=== PATIENT | male | born 1980 | race American Indian/Alaskan Native ===

== ENCOUNTER 2017-12-04 19:56 | Emergency (ER) | payer SELFPAY ==
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
[2017-12-04] MEDS ORDERED: TYLENOL PO ONE (20:57)
[2017-12-04 21:03] LABS: Basophils % (Auto) 0.5 % (0.0-1.8); Eosinophils # (Auto) 0.1 K/mm3 (0.0-0.4); Eosinophils % (Auto) 1.7 % (0.0-4.3); Hematocrit 45.7 % (35.5-45.6); Hemoglobin 15.4 gm/dl (11.8-15.2); Lymphocytes % (Auto) 44.6 % (13.4-35.0); Mean Corpuscular HGB Conc 34 % (32-34); Mean Corpuscular Hemoglobin 31 pg (28-32); Mean Corpuscular Volume 91 fl (84-94); Monocytes # (Auto) 0.6 K/mm3 (0.0-0.8); Monocytes % (Auto) 13.8 % (0.0-7.3); Platelet Count 167 K/mm3 (140-440); Red Blood Count 5.01 M/mm3 (3.65-5.03); Red Cell Distribution Width 15.2 % (13.2-15.2)
[2017-12-04 21:17] LABS: BUN/Creatinine Ratio 9; Blood Urea Nitrogen 12 mg/dL (9-20); Calcium 9.3 mg/dL (8.4-10.2); Hemolysis Index 16
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
[2017-12-05 00:45] LABS: Benzodiazepines Screen,Urine PRESUMPTIVE NEGATIVE; Methadone Screen,Urine PRESUMPTIVE NEGATIVE; Opiate Screen,Urine PRESUMPTIVE NEGATIVE
[2017-12-05 00:46] LABS: Bilirubin,Urine NEG (Negative); Blood,Urine NEG (Negative); Color,Urine Yellow (Yellow); Mucus,Urine 2+ /HPF
[2017-12-05 00:58] LABS: Amphetamine Screen,Urine PRESUMPTIVE POSITIVE; Cannabinoid Screen,Urine PRESUMPTIVE POSITIVE; Cocaine Screen,Urine PRESUMPTIVE POSITIVE
[2017-12-05] MEDS ORDERED: TYLENOL PO ONE (08:39)
[2017-12-05] MEDS ORDERED: TYLENOL ONE (20:41)
[2017-12-05] MEDS: TYLENOL PO SCH (21:00)
[2017-12-06] MEDS: TYLENOL PO SCH (03:07)
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
[2017-12-06] MEDS: TYLENOL PO PRN ×2 (17:42→18:00)
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
[2017-12-07] MEDS: TYLENOL PO PRN (17:32)
[2017-12-08] MEDS: TYLENOL PO PRN (09:46)
[2017-12-08 11:15] VITALS: BP 125/74
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
== END 2017-12-08 14:56 | disposition home or self-care (01) ==
LOC: EEVIPCON 19:56 → ED 19:56
DX: F39 Unspecified mood [affective] disorder (principal); F12.10 Cannabis abuse, uncomplicated; F14.10 Cocaine abuse, uncomplicated; F17.200 Nicotine dependence, unspecified, uncomplicated; G89.29 Other chronic pain
CPT/HCPCS: 36415; 70450; 80048; 80307; 81001; 85025; 99284; G0480; 80320